=== PATIENT | female | born 1960 | race Caucasian/White ===

== ENCOUNTER 2017-09-12 07:56 | Day surgery (SDC) | payer BC ==
[2017-09-12] VITALS (11 sets, daily range): BP systolic 109–145; BP diastolic 57–84; PULSE 43–55; TEMP 97.9
[~2017-09-12] VITALS: Ht 170.3 cm; Wt 157.5 kg
[~2017-09-12 07:56] MED LIST: AMBIEN CR 12.12.5 MG PO; CALCIUM 600600 M2 PO; ESTROGENS0.625 MG PO; HYZAAR 25 MG-101 TAB PO; MOTRIN 800800 MG/TAB PO; MULTIPLE VITAMI1 CAP PO; PREMARIN .3MG0.3 MG PO; TRILIPIX45 MG PO; ULTRAM 50MG TAB50 MG PO
[2017-09-12 08:45] LABS: HEMATOCRIT 38.7 % (37.0-47.0); HEMOGLOBIN 12.3 g/dl (12.5-16.0); MEAN CELL VOLUME 85 fl (80.0-100.0); MEAN CORPUSCULAR HEMOGLOBIN 27 pg (27.0-31.0); MEAN CORPUSCULAR HGB CONC 32 g/dl (33.0-37.0); MEAN PLATELET VOLUME 11.5 fl (7.4-10.4); PLATELET COUNT 225 K/mm3 (130-400); RED BLOOD COUNT 4.54 M/mm3 (4.10-5.30); REDCELL DISTRIBUTION WIDTH-CV 13.3 % (11.5-14.5)
[2017-09-12 08:51] LABS: PROTHROMBIN TIME 12.1 SECONDS (9.7-12.8)
[2017-09-12] MEDS ORDERED: D-2000 90 MG-201 TAB PO (08:51)
[2017-09-12] MEDS ORDERED: EPA FISH OIL1 SGL PO (08:52)
[2017-09-12] MEDS ORDERED: CALCIUM 600-D 61 TAB PO (08:53)
[2017-09-12] MEDS ORDERED: LASIX 40MG TABL40 MG PO (08:54)
[2017-09-12] MEDS ORDERED: ASPIRIN E.C. 8181 MG PO (08:54)
[2017-09-12] MEDS ORDERED: BYSTOLIC10 MG PO (08:55)
[2017-09-12 08:56] LABS: CALCIUM 9.6 mg/dL (8.4-10.2); POTASSIUM 3.7 mmol/L (3.4-5.0)
[2017-09-12] MEDS ORDERED: NORVASC 10MG10 MG PO (08:56)
[2017-09-12] MEDS ORDERED: CATAPRES 0.1MG0.1 MG PO (08:57)
[2017-09-12] MEDS ORDERED: TRICOR145 MG PO (08:57)
[2017-09-12] MEDS ORDERED: NEURONTIN300 MG/CAP PO (08:59)
[2017-09-12] MEDS ORDERED: NORCO 325 MG-101 TAB PO (09:00)
[2017-09-12] MEDS ORDERED: COLACE 100100 MG/CAP PO (09:01)
== END 2017-09-12 15:31 | disposition home or self-care (01) ==
LOC: COL.CAR 07:56
PROVIDERS: Internal Medicine Cardiovascular Disease
DX: I25.10 Atherosclerotic heart disease of native coronary artery without angina pectoris (principal); R94.39 Abnormal result of other cardiovascular function study; I10 Essential (primary) hypertension; E78.00 Pure hypercholesterolemia, unspecified; Z88.1 Allergy status to other antibiotic agents; Z82.49 Family history of ischemic heart disease and other diseases of the circulatory system; Z79.82 Long term (current) use of aspirin
CPT/HCPCS: J1644; J2250; J3010; Q9967

== ENCOUNTER 2024-01-20 08:56 | Day surgery (SDC) | payer BC ==
[~2024-01-20] VITALS: Ht 170.2 cm; Wt 137.2 kg
[2024-01-20] VITALS (14 sets, daily range): BP systolic 102–143; BP diastolic 61–86; PULSE 53–70; TEMP 97.5–97.9
[~2024-01-20 08:56] MED LIST changes: +ASPIRIN E.C. 8181 MG PO; +BYSTOLIC10 MG PO; +CALCIUM 600-D 61 TAB PO; +CATAPRES 0.1MG0.1 MG PO; +COLACE 100100 MG/CAP PO; +EPA FISH OIL1 SGL PO; +LASIX 40MG TABL40 MG PO; +NEURONTIN600 MG/TAB PO; +NORCO 325 MG-101 TAB PO; +NORVASC 10MG10 MG PO; +TRICOR145 MG PO; +VITAMIND3 5000 PO
[2024-01-20] MEDS ORDERED: 1/2 NS 1,000 ML IV SCH (09:30)
[2024-01-20] MEDS ORDERED: ceFAZolin 2 G in Water For Injection,Sterile 20 ML IV SCH (09:30)
[2024-01-20] MEDS ORDERED: HCTZ 25MG TAB25 MG PO (09:40)
[2024-01-20] MEDS ORDERED: COZAAR100 MG PO (09:41)
[2024-01-20] MEDS ORDERED: LOFIBRA160 MG PO (09:42)
[2024-01-20] MEDS ORDERED: MOBIC15 MG PO (09:42)
[2024-01-20] MEDS ORDERED: GLUCOPHAGE500 MG/TAB PO (09:43)
[2024-01-20] MEDS ORDERED: LEXAPRO 10MG10 MG PO (09:44)
[2024-01-20] MEDS ORDERED: FISH OIL 1000MG1 CAP PO (09:45)
[2024-01-20] MEDS ORDERED: VITAMIN B122500 MCG SL (09:47)
[2024-01-20] MEDS ORDERED: NATURAL MAGNES200 MG PO (09:48)
[2024-01-20] MEDS ORDERED: TYLENOL 500MG500 MG PO (09:49)
[2024-01-20] MEDS ORDERED: CLARITIN 1010 MG/TAB PO (09:49)
[2024-01-20] MEDS ORDERED: FIBERCON PO (09:50)
[2024-01-20 09:53] LABS: BASO # 0.1 K/mm3 (0.0-0.2); BASO % 0.8 % (0.0-2.0); EOS # 0.3 K/mm3 (0.0-0.7); EOS % 4.1 % (0.0-4.0); GRAN # 3.5 K/mm3 (1.4-6.5); GRAN % 48.4 % (42.2-75.2); HEMATOCRIT 39.1 % (37.0-47.0); HEMOGLOBIN 12.1 g/dl (12.5-16.0); LYMPH % 40.4 % (20.0-51.0); MEAN CELL VOLUME 83 fl (80.0-100.0); MEAN CORPUSCULAR HEMOGLOBIN 26 pg (27-31); MEAN CORPUSCULAR HGB CONC 31 g/dl (33.0-37.0); MONO # 0.4 K/mm3 (0.1-0.6); PLATELET COUNT 238 K/mm3 (130-400); RED BLOOD COUNT 4.71 M/mm3 (4.10-5.30); REDCELL DISTRIBUTION WIDTH-CV 14.1 % (11.5-14.5)
[2024-01-20] MEDS ORDERED: SEN-O-TABS8.6 MG PO (09:54)
[2024-01-20 10:03] LABS: PROTHROMBIN TIME 11.2 SECONDS (9.7-12.8)
[2024-01-20 10:10] LABS: CREATININE, serum 1.02 mg/dL (0.57-1.11); POTASSIUM 3.9 mEq/L (3.5-4.5)
--- NOTE | 2024-01-20 12:39 | NUR ---
Refer to Merge report for procedural sedation/notes
[2024-01-20] MEDS ORDERED: fentaNYL 50 MCG/ML 2 ML VIAL IV SCH (13:06)
[2024-01-20] MEDS ORDERED: Midazolam 2 MG/2 ML VIAL IV SCH (13:07)
[2024-01-20] MEDS ORDERED: Iohexol 350 - 100 ML VIAL IV ONE (13:07)
[2024-01-20] MEDS ORDERED: NS 1,000 ML IV.SOLN. IR SCH (13:08)
[2024-01-20] MEDS ORDERED: Temazepam 15 MG CAP PO PRN (13:30)
[2024-01-20] MEDS ORDERED: Acetaminophen 500 MG TAB PO PRN (13:30)
[2024-01-20] MEDS ORDERED: Docusate Sodium 100 MG CAP PO PRN ×2 (13:30→13:45)
[2024-01-20] MEDS ORDERED: Acetaminophen 500 MG TAB PO ONE (13:45)
[2024-01-20] MEDS ORDERED: Cephalexin 500 MG CAP PO SCH (14:00)
--- NOTE | 2024-01-20 14:15 | NUR ---
Pt arrived to medical floor from feed mill lab technician by bed. Report received from SRAVANI Galeana. Admission intake and assessment completed. VSS. Sling in place on Lt upper extremity. Pt rates pain 3/10, ICE pack placed on Lt shoulder. Incision site CDI with gauze and tegaderm. Oriented pt to room, call light, and bathroom. Pt has no complaints at this time. Home medications, allergies, and pharmacy reviewed. Call light within reach.
--- NOTE | 2024-01-20 15:17 | NUR ---
Pt back to medical floor from [facility]
--- NOTE | 2024-01-20 19:10 | NUR ---
Pt ambulates in hallway independently with no complications. Gauze to Lt upper chest CDI. Pt denies pain at this time rating 0/10. Sling in [address] to Lt upper extremity. Call light within reach.
[2024-01-20] MEDS ORDERED: Gabapentin 400 MG CAP PO SCH (21:00)
[2024-01-20] MEDS ORDERED: Magnesium Oxide 400 MG TAB PO SCH (21:00)
[2024-01-20] MEDS ORDERED: Fenofibrate 54 MG TABLET PO SCH (21:00)
[2024-01-20] MEDS ORDERED: cloNIDine 0.1 MG TAB PO SCH (21:00)
[2024-01-20] MEDS ORDERED: Escitalopram 10 MG TAB PO SCH (21:00)
--- NOTE | 2024-01-20 21:15 | NUR ---
Patient resting in bed. Rates her pain at 5/10 at this time. Denies any needs. Assessment complete. Dressing to left chest CDI, ice pack on site. IV in left forearm flushes easily without complications. Call light and personal items in reach. Bed in low position.
[2024-01-21] VITALS (7 sets, daily range): BP systolic 105–170; BP diastolic 68–83; PULSE 60–62; TEMP 98.1–98.5
[2024-01-21] MEDS ORDERED: Furosemide 40 MG TAB PO SCH (09:00)
[2024-01-21] MEDS ORDERED: amLODIPine 10 MG TAB PO SCH (09:00)
[2024-01-21] MEDS ORDERED: Loratadine 10 MG TAB PO SCH (09:00)
[2024-01-21] MEDS ORDERED: Calcium Carb/Vit D3 500 mg-200 Units TAB PO SCH (09:00)
[2024-01-21] MEDS ORDERED: hydroCHLOROthiazide 25 MG TAB PO SCH (09:00)
[2024-01-21] MEDS ORDERED: Meloxicam 7.5 MG TAB PO SCH (09:00)
[2024-01-21] MEDS ORDERED: Losartan 50 MG TAB PO SCH (09:00)
[2024-01-21] MEDS ORDERED: Multivitamin TAB PO SCH (09:00)
[2024-01-21] MEDS ORDERED: Omega-3 Fatty Acid Esters (OTC) 1,000 MG CAP PO SCH (09:00)
[2024-01-21] MEDS ORDERED: Cholecalciferol (Vit D3) 5000 Units Capsule PO SCH (09:00)
--- NOTE | 2024-01-21 10:15 | NUR ---
merchandise worker met with pt to discuss discharge planning. She reports to live alone in [place], but plans to stay with her daughter upon discharge. She sees Dr. Staples for PCP needs and obtains medications from [facility] with no difficulties. She is independent with ADLS and uses no DME. She reports her daughter's are DPOA-HC and her copy is at home. She states Odalis and Nighat [phone] both have copies as well. Discharge Plan: to daughter's house
[2024-01-21] MEDS ORDERED: CEPHALEXIN500 M1 PO (10:41)
--- NOTE | 2024-01-21 12:00 | NUR ---
REY GIVEN DISCHARGE INSTRUCTIONS AND EDUCAITION. IV AND TELE REMOVED. PATIENT HAS PM CARD WITH HER. POST MAKER IMPLANTATION DISCHARGE INSTRUCITONS REVIEWED WITH PATIENT. PATIENT TAKEN TO PATIENT ENTRACE WHERE SHE LEFT IN STABLE CONDITOIN WITH FAMILY.
--- NOTE | 2024-01-21 12:02 | NUR ---
D: Transmission Rebuilder stopped by room on rounds. A: Pt was resting and content. Pt has no needs right now. P: Transmission Rebuilder informed pt that if she needed anything from the traffic chief area to let her nurse know. Transmission Rebuilder will follow up as needed.
== END 2024-01-21 12:00 | disposition home or self-care (01) ==
LOC: COL.CAR 08:56 → MEDICAL 13:40 → COL.CAR 01-21 12:00
PROVIDERS: Internal Medicine Cardiovascular Disease
DX: R00.1 Bradycardia, unspecified (principal); R53.83 Other fatigue; I11.9 Hypertensive heart disease without heart failure; R42 Dizziness and giddiness; E78.5 Hyperlipidemia, unspecified; Z79.82 Long term (current) use of aspirin
CPT/HCPCS: OP; C1785; C1894; C1898; J0665-JZ; J0690; J2250; J3010; J7030; Q9967

== ENCOUNTER 2024-02-27 11:12 | Inpatient (IN) | payer BC ==
[~2024-02-27] VITALS: Ht 172.7 cm; Wt 141.1 kg
[~2024-02-27 11:12] MED LIST changes: +CEPHALEXIN500 M1 PO; +CLARITIN 1010 MG/TAB PO; +COZAAR100 MG PO; +FIBERCON PO; +FISH OIL 1000MG1 CAP PO; +GLUCOPHAGE500 MG/TAB PO; +HCTZ 25MG TAB25 MG PO; +LEXAPRO 10MG10 MG PO; +LOFIBRA160 MG PO; +MOBIC15 MG PO; +NATURAL MAGNES200 MG PO; +SENNA-LAX8.6 MG PO; +TYLENOL 500MG500 MG PO; +VITAMIN B122500 MCG SL
[2024-02-27 14:40] VITALS: BP 170/85; PULSE 92; TEMP 98.1
[2024-02-27] MEDS ORDERED: Ondansetron 4 MG/2 ML VIAL IV PRN (14:45)
[2024-02-27] MEDS ORDERED: Acetaminophen 500 MG TAB PO PRN (14:45)
[2024-02-27 15:00] VITALS: BP_SYST 170
[2024-02-27] MEDS ORDERED: Escitalopram 10 MG TAB PO SCH (15:41)
[2024-02-27] MEDS ORDERED: hydroCHLOROthiazide 25 MG TAB PO SCH (15:42)
[2024-02-27] MEDS ORDERED: Losartan 50 MG TAB PO SCH (15:42)
[2024-02-27] MEDS ORDERED: ZOLPIDEM 12.5 MG PO PRN (15:45)
[2024-02-27] MEDS ORDERED: SUBS TO ZOLPIDEM PO PRN (15:45)
[2024-02-27] MEDS ORDERED: Zolpidem 10 MG TAB PO PRN (16:15)
[2024-02-27 16:20] LABS: INR 1.1 (0.8-3.0); PROTHROMBIN TIME 11.9 SECONDS (9.7-12.8)
[2024-02-27 16:28] LABS: ALBUMIN 4.2 g/dL (3.4-4.8); BILIRUBIN,TOTAL 0.3 mg/dL (0.2-1.2); CALCIUM 10.4 mg/dL (8.4-10.2); CREATININE, serum 0.98 mg/dL (0.57-1.11); POTASSIUM 3.9 mEq/L (3.5-4.5); TOTAL PROTEIN 7.5 g/dl (6.2-8.1)
[2024-02-27 16:40] LABS: TROPONIN-I 0.061 ng/mL (0.00-0.033)
[2024-02-27] MEDS ORDERED: Gabapentin 300 MG CAP PO SCH (17:00)
[2024-02-27] MEDS ORDERED: Magnesium Sulfate 4% 50 ML IV ONE (17:00)
[2024-02-27 17:06] LABS: BASO # 0.1 K/mm3 (0.0-0.2); BASO % 0.9 % (0.0-2.0); EOS # 0.2 K/mm3 (0.0-0.7); EOS % 2.4 % (0.0-4.0); GRAN # 4.6 K/mm3 (1.4-6.5); GRAN % 55.7 % (42.2-75.2); HEMATOCRIT 43.2 % (37.0-47.0); HEMOGLOBIN 13.7 g/dl (12.5-16.0); LYMPH # 2.8 K/mm3 (1.2-3.4); LYMPH % 33.9 % (20.0-51.0); MEAN CELL VOLUME 83 fl (80.0-100.0); MEAN CORPUSCULAR HEMOGLOBIN 26 pg (27-31); MEAN CORPUSCULAR HGB CONC 32 g/dl (33.0-37.0); MEAN PLATELET VOLUME 10.8 fl (7.4-10.4); MONO # 0.6 K/mm3 (0.1-0.6); MONO % 6.7 % (1.7-9.3); PLATELET COUNT 250 K/mm3 (130-400); REDCELL DISTRIBUTION WIDTH-CV 14.6 % (11.5-14.5)
[2024-02-27 19:09] VITALS: BP_SYST 137
--- NOTE | 2024-02-27 19:09 | NUR ---
PATIENT RESTING IN BED WITH TV OFF WITH FAMILY AT BEDSIDE WITH NO ACUTE DISTRESS NOTED. PATIENT ON ROOM AIR. INT TO RIGHT AC INTACT. TELEMETRY INTACT. BEDSIDE REPORT COMPLETED WITH BIANCA AT THIS TIME. PATIENT DENIES ANY NEEDS AT THIS TIME. BED IN LOW POSITION WITH WHEELS LOCKED WITH RAILS UP X2 AND CALL LIGHT WITHIN REACH.
[2024-02-27 19:36] VITALS: BP 137/83; PULSE 75; TEMP 98.1
--- NOTE | 2024-02-27 20:34 | NUR ---
DR. ENG PAGED FOR PATIENT QTC OF 512 TO SEE IF HE WANTED THE PATIENT TO STILL HAVE NIGHT TIME DOSE OF SOTALOL.
--- NOTE | 2024-02-27 20:54 | NUR ---
PATIENT RESTING IN BED LOOKING AT IPAD WITH TV OFF WITH NO FAMILY PRESENT WITH NO ACUTE DISTRESS NOTED. PATIENT ON ROOM AIR. INT TO RIGHT AC INTACT WITH NO COMPLICATIONS NOTED. TELEMETRY INTACT. ASSESSMENT AND MEDICATION ADMINISTRATION COMPLETED AT THIS TIME. PATIENT TOLERATED WELL. PATIENT REQUESTED ICE AND WATER. BOTH GIVEN. PATIENT DENIES ANY OTHER NEEDS. BED IN LOW POSITION WITH WHEELS LOCKED WITH RAILS UP X2 AND CALL LIGHT WITHIN REACH.
[2024-02-27] MEDS ORDERED: Magnesium Oxide 400 MG TAB PO SCH (21:00)
[2024-02-27] MEDS ORDERED: Apixaban 5 MG TABLET PO SCH (21:00)
[2024-02-27] MEDS ORDERED: Fenofibrate 54 MG TABLET PO SCH (21:00)
--- NOTE | 2024-02-27 23:09 | NUR ---
HOSPITALIST Sheila NO RUCHING MACHINE OPERATOR CALLED FOR HIGH CRITICAL TROPONIN OF 0.071. NO NEW ORDERS RECIEVED.
[2024-02-27 23:55] VITALS: BP 131/81; PULSE 65; TEMP 98
[2024-02-28] VITALS (22 sets, daily range): BP systolic 122–149; BP diastolic 68–89; PULSE 60–86; TEMP 97.6–98.3
[2024-02-28 07:36] LABS: BASO # 0.1 K/mm3 (0.0-0.2); BASO % 0.8 % (0.0-2.0); EOS # 0.3 K/mm3 (0.0-0.7); EOS % 4.4 % (0.0-4.0); GRAN # 3.9 K/mm3 (1.4-6.5); GRAN % 50.7 % (42.2-75.2); HEMATOCRIT 45.5 % (37.0-47.0); HEMOGLOBIN 14.2 g/dl (12.5-16.0); LYMPH # 2.9 K/mm3 (1.2-3.4); LYMPH % 37.6 % (20.0-51.0); MEAN CELL VOLUME 86 fl (80.0-100.0); MEAN CORPUSCULAR HEMOGLOBIN 27 pg (27-31); MEAN CORPUSCULAR HGB CONC 31 g/dl (33.0-37.0); MEAN PLATELET VOLUME 11.1 fl (7.4-10.4); MONO # 0.5 K/mm3 (0.1-0.6); MONO % 6.2 % (1.7-9.3); PLATELET COUNT 298 K/mm3 (130-400); RED BLOOD COUNT 5.32 M/mm3 (4.10-5.30); REDCELL DISTRIBUTION WIDTH-CV 14.8 % (11.5-14.5)
[2024-02-28 07:53] LABS: CALCIUM 10.4 mg/dL (8.4-10.2); CREATININE, serum 0.98 mg/dL (0.57-1.11); POTASSIUM 3.9 mEq/L (3.5-4.5)
--- NOTE | 2024-02-28 08:34 | NUR ---
PT LAYING IN BED UPON ENTERING. ASSESSMENT DONE, PT NPO AT THIS TIME. INT TO LEFT FOREARM PATENT. PT SHOWERED THIS MORNING. PT DENIES NEEDS. BED IN LOWEST POSITION, CALL LIGIHT IN REACH
[2024-02-28] MEDS ORDERED: Loratadine 10 MG TAB PO SCH (09:00)
[2024-02-28] MEDS ORDERED: Furosemide 40 MG TAB PO SCH (09:00)
[2024-02-28] MEDS ORDERED: Lidocaine PF 2% (20 MG/ML) 5 ML VIAL ONE (09:08)
--- NOTE | 2024-02-28 09:18 | NUR ---
PT TAKEN DOWN TO CASING FLUID TENDER
[2024-02-28] MEDS ORDERED: Magnesium Oxide 400 MG TAB PO ONE (09:30)
--- NOTE | 2024-02-28 09:46 | NUR ---
PT TAKEN TO NUC MED FROM [employer]ICA[employer] BILLING SPECIALIST
[2024-02-28] MEDS ORDERED: Hydrocortisone 1% Cream 30 GM TUBE TP PRN (10:00)
[2024-02-28] MEDS ORDERED: Regadenoson 0.08 MG/ML 5 ML SYRINGE IV SCH (10:21)
--- NOTE | 2024-02-28 11:15 | NUR ---
PT BACK ON FLOOR. POST OPS VITALS STARTED, MEDS GIVEN. PT DENIES NEEDS. BED IN LOWEST POSITION, CALL LIGHT IN REACH
--- NOTE | 2024-02-28 12:02 | NUR ---
mud jack nozzle worker met with patient and discussed discharge planning. Patient lives in [place] by herself. Her points of contact is Nighat, daughter, P# [phone] and Odalis, daughter, P# [phone]. PCP is Dr. Staples, Pharmacy is [facility]. Patient reports up until this visit she has been able to afford her medications but she will be put on Eliquis during this stay. SW explained the pharmacy at the hospital will give her a 30 day voucher for the Eliquis and then she would recommend speaking with her pharmacy about additional options for discount programs. DPOA-HC is Nighat and/or Odalis, she stated they have equal rights. No DME currently and reports to be independent with ADLS and she has been able to transport herself to and from work and appointments. Patient would like to return home at time of discharge. Discharge plan: Home
--- NOTE | 2024-02-28 19:07 | NUR ---
PATIENT RESTING IN BED WITH TV OFF WITH NO FAMILY PRESENT WITH NO ACUTE DISTRESS NOTED. PATIENT ON ROOM AIR. INT TO LEFT FOREARM INTACT WITH NO COMPLICATIONS NOTED. TELEMETRY INTACT. BEDSIDE SHIFT REPORT COMPLETED WITH BIANCA AT THIS TIME. PATIENT DENIES ANY NEEDS. BED IN LOW POSITION WITH WHEELS LOCKED WITH RAILS UP X3 AND CALL LIGHT WITHIN REACH.
--- NOTE | 2024-02-28 19:40 | NUR ---
PATIENT RESTING SITTING ON WINDOW BENCH WITH TV OFF WITH NO FAMILY PRESENT WITH NO ACUTE DISTRESS NOTED. PATIENT ON ROOM AIR. TELEMETRY INTACT. INT TO LEFT FOREARM INTACT WITH NO COMPLICATIONS NOTED. ASSESSMENT COMPLETED AT THIS TIME. PATIENT TOLERATED WELL. PATIENT DENIES ANY NEEDS AT THIS TIME. BED IN LOW POSITION WITH WHEELS LOCKED WITH RAILS UP X3 AND CALL LIGHT WITHIN REACH.
--- NOTE | 2024-02-28 19:50 | NUR ---
PATIENT UP WALKING IN HALLWAY AT THIS TIME. PATIENT GAIT STEADY.
--- NOTE | 2024-02-28 20:53 | NUR ---
PATIENT RESTING IN BED WITH TV OFF WITH NO FAMILY PRESENT WITH NO ACUTE DISTRESS NOTED. PATIENT ON ROOM AIR. TELEMETRY INTACT. INT TO LEFT FOREARM INTACT WITH NO COMPLICATIONS NOTED. MEDICATION ADMINISTRATION COMPLETED AT THIS TIME. PATIENT TOLERATED WELL. ALL NEEDS MET. BED IN LOW POSITION WITH WHEELS LOCKED WITH RAILS UP X3 AND CALL LIGHT WITHIN REACH.
[2024-02-29] VITALS: BP_SYST 131
--- NOTE | 2024-02-29 01:43 | NUR ---
PATIENT C/O PAIN IN ANKLE AND LEGS. PO TYLENOL GIVEN PER MD ORDER. PATIENT TOLERATED WELL.
[2024-02-29 03:56] VITALS: BP 99/56; PULSE 61; TEMP 98.8
[2024-02-29 04:00] VITALS: BP_SYST 99
[2024-02-29 07:11] VITALS: BP 123/81; PULSE 59; TEMP 97.8
[2024-02-29 07:18] LABS: BASO # 0.1 K/mm3 (0.0-0.2); BASO % 0.8 % (0.0-2.0); EOS # 0.3 K/mm3 (0.0-0.7); EOS % 4.4 % (0.0-4.0); GRAN # 3.3 K/mm3 (1.4-6.5); GRAN % 44.5 % (42.2-75.2); HEMATOCRIT 42.3 % (37.0-47.0); HEMOGLOBIN 13.5 g/dl (12.5-16.0); LYMPH # 3.3 K/mm3 (1.2-3.4); LYMPH % 43.4 % (20.0-51.0); MEAN CELL VOLUME 84 fl (80.0-100.0); MEAN CORPUSCULAR HEMOGLOBIN 27 pg (27-31); MEAN CORPUSCULAR HGB CONC 32 g/dl (33.0-37.0); MEAN PLATELET VOLUME 10.4 fl (7.4-10.4); MONO # 0.5 K/mm3 (0.1-0.6); MONO % 6.5 % (1.7-9.3); PLATELET COUNT 257 K/mm3 (130-400); RED BLOOD COUNT 5.02 M/mm3 (4.10-5.30); REDCELL DISTRIBUTION WIDTH-CV 14.6 % (11.5-14.5)
[2024-02-29 07:36] LABS: CALCIUM 10.1 mg/dL (8.4-10.2); MAGNESIUM 1.7 mg/dL (1.6-2.6)
[2024-02-29 08:00] VITALS: BP_SYST 123
--- NOTE | 2024-02-29 08:50 | NUR ---
PATIENT ALERT AND ORIENTED. TELEMETRY A-PACED ON ROOM AIR. PATIENT REPORTS BACK PAIN /. PATIENT DENIES SOA.PATIENT EDUCATED ON SOME QUESTIONS ABOUT MEDICATION.PATIENT GIVEN EDICATIONAL WRITTEN PAPERS TO ASSIST PATIENT WITH THE INFORMATION.PATIENT GETTING READY FOR A SHOWER. PATIENT CALL LIGHT WITHIN REACH. BED AT LOWEST POSITION.
[2024-02-29] MEDS ORDERED: ELIQUIS 5MG PO (09:31)
[2024-02-29] MEDS ORDERED: BETAPACE 80MG80 MG PO (09:32)
--- NOTE | 2024-02-29 10:44 | NUR ---
PATIENT DISCHARGE INSTRUCTIONS GIVEN. PATIENT VERBALIZES UNDERSTANDING.PATIENT LEFT HAND IV REMOVED. INSTRUCTED TO CALL WHEN RIDE GETS HERE TO BE ESORTED OUT BY PCT.
--- NOTE | 2024-02-29 11:32 | NUR ---
PATIENT TELEMETRY DISCONTINUED. WORK RELEASE FORM GIVEN TO PATIENT. PATIENT ESORTED OUT OF UNIT BY KRISTY.
== END 2024-02-29 11:35 | disposition home or self-care (01) | DRG 282 ==
LOC: MEDICAL 11:12
PROVIDERS: ADMIT Internal Medicine
PROC: 5A2204Z Restoration of Cardiac Rhythm, Single (ICD-10-PCS; principal; 2024-02-28)
DX: I48.91 Unspecified atrial fibrillation (principal); I21.A1 Myocardial infarction type 2; I10 Essential (primary) hypertension; E78.5 Hyperlipidemia, unspecified; F41.9 Anxiety disorder, unspecified; F32.A Depression, unspecified; R79.89 Other specified abnormal findings of blood chemistry; H26.9 Unspecified cataract; M19.90 Unspecified osteoarthritis, unspecified site; Z66 Do not resuscitate; K21.9 Gastro-esophageal reflux disease without esophagitis; E11.9 Type 2 diabetes mellitus without complications; Z95.0 Presence of cardiac pacemaker; Z79.899 Other long term (current) drug therapy; Z79.82 Long term (current) use of aspirin; Z79.84 Long term (current) use of oral hypoglycemic drugs; Z88.1 Allergy status to other antibiotic agents
CPT/HCPCS: A9500-JZ; J2704; J2785; J3475